=== PATIENT | male | born 1960 | race Caucasian/White ===

== ENCOUNTER → 2018-08-26 | Outpatient (CLI) | payer OTHER | LOC: BMCIMAGING 09:19 | PROVIDERS: ATTEND Internal Medicine Rheumatology | DX: M25.541 Pain in joints of right hand (principal); M25.571 Pain in right ankle and joints of right foot; M12.841 Other specific arthropathies, not elsewhere classified, right hand; M12.871 Other specific arthropathies, not elsewhere classified, right ankle and foot ==